=== PATIENT | female | born 1945 | race Two or more races ===

== ENCOUNTER → 2017-01-21 | Day surgery (SDC) | payer MEDICARE ==
[~2017-01-21] VITALS: Ht 168.9 cm; Wt 67.6 kg
[~2017-01-21] MED LIST: ASCO10003 PO; CALCTAB63 PO; CIPR500T3 PO; CIPROFLOXACIN 400 MG in APPROPRIATE DILUENT 1 EA IV ONE; CITA20TA4 PO; CONRAY-60 60% 50ML VIAL (Q9961) As Ordered ONE; DILT180C74 PO; GLUC1CAP10 PO; HYDR-3716 PO; KETOROLAC 60 MG/2 ML VIAL (J1885) As Ordered ONE; LEVO125T4 PO; LIDOCAINE 2% INJ 100 MG/5 ML SDV (FOR ANES.) As Ordered ONE; LR 1,000 ML IV ONE; LR 1,000 ML IV SCH; METOCLOPRAMIDE INJ 10MG/2ML VIAL (J2765) As Ordered ONE; METOCLOPRAMIDE INJ 10MG/2ML VIAL (J2765) IV PRN; MIDAZOLAM INJ 2 MG/2 ML VIAL (J2250) As Ordered ONE; MULT1TAB10 PO; OMEP20CA3 PO; ONDANSETRON 4MG/2ML VIAL (J2405) As Ordered ONE; ONDANSETRON 4MG/2ML VIAL (J2405) IV PRN; PROPOFOL 200 MG/20 ML VIAL As Ordered ONE; ROPI1TAB PO; SPIR25TA2 PO; STOO100C PO; TORS20TA2 PO; TURM500C3 PO; TYLE650T35 PO; VITATAB11 PO; dexameTHASONE 4 MG/ML 1ML VIAL (J1100) As Ordered ONE; fentaNYL 100 MCG/2 ML INJECTION (J3010) As Ordered ONE; fentaNYL 100 MCG/2 ML INJECTION (J3010) IV PRN
[2017-01-21 10:21] LABS: INR 0.97
--- NOTE | 2017-01-21 13:08 | REP ---
Retrograde pyelogram: Procedures performed by the urologist, Dr. Azevedo. Two intraoperative fluoroscopic views are performed during right ureteral stent placement. The final film demonstrates the proximal and distal pigtails are in satisfactory locations. Fluoroscopic exposure time is 26 seconds. Fluoroscopic images are performed with last image hold technology. These images require no additional radiation. Signed by Jordan Cheek MD 01/21/2017 01:00 P
[2017-01-21 14:25] VITALS: BP 134/76
--- NOTE | 2017-01-22 19:07 | RO ---
DATE OF PROCEDURE: 01/21/2017 PREPROCEDURE DIAGNOSIS: Right kidney stone. POSTPROCEDURE DIAGNOSIS: Right kidney stones. FINDINGS: Multiple right kidney stones of about 5-6 mm in diameter, in total three stones. PROCEDURE: Cystoscopy, plus right retrograde pyelogram, plus right ureteroscopy , plus right basket extraction of stones, plus right double J stent placement, 6-Tunisian Luckey Cook. SURGEON: Ignacio Brown MD BALLOON DESIGN PRINTER: None. ANESTHESIA: General. COMPLICATIONS: None. ESTIMATED BLOOD LOSS: N/A. HISTORY OF THE PRESENT ILLNESS: A 71-year-old female patient with right flank pain and a 1 cm kidney stone. The patient has consented for a cystoscopy, plus right retrograde pyelogram, right ureteroscopy, possible laser stone lithotripsy , possible basket extraction of stones, possible right double J stent placement. DESCRIPTION OF PROCEDURE: In a patient under general anesthesia in supine modified low lithotomy position, after prepping and draping the area of concern, which included the entire genitalia and abdomen, we started by introducing a 21-Tunisian cystoscope with a 30-degree lens under videoendoscopic guidance. The urethra and bladder neck were totally normal. The bladder had no tumors, no stones, no foreign objects. Both ureteral orifices were excreting clear urine. We then proceeded to actually do a retrograde pyelogram on the right side. There were no stones in the ureter. At that moment in time, we passed the guidewire up to the kidney, took the cystoscope out, passed a ureteral access sheath up to the proximal ureter, took out the obturator of the ureteral access sheath and then loaded a flexible ureteroscopy. We did a formal nephroscopy with a flexible ureteroscopy; upper pole, mid pole and lower pole . There were stones in the upper pole and the mid pole. We then proceeded to actually grab each stone, a total of three stones about 5-6 mm in diameter, was grabbed with a basket, a 1.9 [place]ian ZeroTip basket and pulled out of the body of the patient. Once the kidney was cleared of any type of stones, we actually did a retrograde ureteroscopy by removing the ureteral access sheath and the flexible ureteroscope at the same time. We then proceeded to place a cystoscope and following the guidewire, we placed a right double J stent, 6-Tunisian Luckey Cook. Once the stent was in good position, we took the guidewire out, and we could see the curl in the kidney and the curl in the bladder. We then emptied the bladder and took the cystoscope out. PLAN: The patient will go home today with antibiotic, pain medication, followup in 1 week for removal of right double J stent. Stones were sent for biochemical analysis. CRISSY
== END | disposition home or self-care (01) ==
LOC: M SDC 09:44
PROVIDERS: ATTEND Urology
DX: N20.0 Calculus of kidney (principal); I10 Essential (primary) hypertension; E03.9 Hypothyroidism, unspecified; K21.9 Gastro-esophageal reflux disease without esophagitis; R29.898 Other symptoms and signs involving the musculoskeletal system; M15.0 Primary generalized (osteo)arthritis; L63.9 Alopecia areata, unspecified; F41.9 Anxiety disorder, unspecified; F32.9 Major depressive disorder, single episode, unspecified; R07.9 Chest pain, unspecified; G25.81 Restless legs syndrome; K43.9 Ventral hernia without obstruction or gangrene; I35.0 Nonrheumatic aortic (valve) stenosis; Z88.0 Allergy status to penicillin; Z88.1 Allergy status to other antibiotic agents; Z88.2 Allergy status to sulfonamides; Z88.8 Allergy status to other drugs, medicaments and biological substances; Z91.048 Other nonmedicinal substance allergy status; Z91.09 Other allergy status, other than to drugs and biological substances; Z79.899 Other long term (current) drug therapy; Z98.84 Bariatric surgery status; Z90.710 Acquired absence of both cervix and uterus; Z98.51 Tubal ligation status; Z87.891 Personal history of nicotine dependence; Z87.19 Personal history of other diseases of the digestive system
CPT/HCPCS: 36415; 52332; 52352; 74420; 82360; 85610; 88300; C1769; C1894; C2617; J0744; J1100; J1885; J2250; J2405; J2765; J3010; Q9961

== ENCOUNTER → 2021-08-04 | Outpatient (REF) | payer MEDICARE ==
[~2021-08-04] MED LIST changes: +ACET650T61 PO; -CIPROFLOXACIN 400 MG in APPROPRIATE DILUENT 1 EA IV ONE; -CITA20TA4 PO; +CITA20TA6 PO; -CONRAY-60 60% 50ML VIAL (Q9961) As Ordered ONE; -DILT180C74 PO; +DILT1CAP3 PO; -KETOROLAC 60 MG/2 ML VIAL (J1885) As Ordered ONE; -LIDOCAINE 2% INJ 100 MG/5 ML SDV (FOR ANES.) As Ordered ONE; -LR 1,000 ML IV ONE; -LR 1,000 ML IV SCH; -METOCLOPRAMIDE INJ 10MG/2ML VIAL (J2765) As Ordered ONE; -METOCLOPRAMIDE INJ 10MG/2ML VIAL (J2765) IV PRN; -MIDAZOLAM INJ 2 MG/2 ML VIAL (J2250) As Ordered ONE; +MM S100C PO; +OMEP1CAP73 PO; -OMEP20CA3 PO; -ONDANSETRON 4MG/2ML VIAL (J2405) As Ordered ONE; -ONDANSETRON 4MG/2ML VIAL (J2405) IV PRN; -PROPOFOL 200 MG/20 ML VIAL As Ordered ONE; -ROPI1TAB PO; +ROPI1TAB3 PO; +SPIR-10 PO; -SPIR25TA2 PO; -STOO100C PO; -TYLE650T35 PO; -dexameTHASONE 4 MG/ML 1ML VIAL (J1100) As Ordered ONE; -fentaNYL 100 MCG/2 ML INJECTION (J3010) As Ordered ONE; -fentaNYL 100 MCG/2 ML INJECTION (J3010) IV PRN
[2021-08-06 07:02] LABS: TOTAL PROTEIN 7.4 GM/DL (6.4-8.2)
[2021-08-06 09:08] LABS: ALBUMIN % 56.7 % (55.8-66.1); ALPHA-1-GLOBULIN % 5.2 % (2.9-4.9); ALPHA-1-GLOBULINS 0.38 GM/DL (0.17-0.41); ALPHA-2-GLOBULINS 1.16 GM/DL (0.42-0.99); ALPHA-2-GLOBULINS % 15.7 % (7.1-11.8); BETA-1-GLOBULINS 0.45 GM/DL (0.28-0.60); BETA-1-GLOBULINS % 6.1 % (4.7-7.2); BETA-2-GLOBULINS 0.44 GM/DL (0.19-0.55); BETA-2-GLOBULINS % 5.9 % (3.2-6.5); GAMMA GLOBULIN % 10.4 % (11.1-18.8); GAMMA GLOBULINS 0.77 GM/DL (0.65-1.58)
== END ==
LOC: M LAB REF 16:43
PROVIDERS: ATTEND Internal Medicine Nephrology
DX: N18.9 Chronic kidney disease, unspecified (principal); D63.1 Anemia in chronic kidney disease

== ENCOUNTER → 2022-05-15 | Outpatient (CLI) | payer MEDICARE ==
[2022-05-15 16:19] LABS: ALBUMIN 3.9 GM/DL (3.2-5.2); BILIRUBIN,TOTAL 0.3 MG/DL (0.2-1.0); CALCIUM LEVEL 9.2 MG/DL (8.8-10.2); CREATININE FOR GFR 2.02 MG/DL (0.55-1.30); GLOMERULAR FILTRATION RATE 25.6 (>39); POTASSIUM SERUM 4.3 MEQ/L (3.5-5.1); TOTAL PROTEIN 7.2 GM/DL (6.4-8.2)
== END ==
LOC: M LAB 14:58
PROVIDERS: ATTEND Nurse Practitioner Family
DX: B35.1 Tinea unguium (principal)

== ENCOUNTER 2022-07-21 15:58 | Inpatient (IN) | payer MEDICARE ==
[~2022-07-21] VITALS: Ht 167.6 cm; Wt 100.0 kg
[2022-07-21 22:06] LABS: BASO % 0.6 % (0.0-1.0); EOS # 0.1 10^3/uL (0.0-0.5); EOS % 2.6 % (0.0-3.0); HEMATOCRIT 28.7 % (36.0-47.0); HEMOGLOBIN 8.7 g/dl (12.0-15.5); LYMPH # 1.1 10^3/uL (1.5-5.0); LYMPH % 21.2 % (24.0-44.0); MEAN CORPUSCULAR HGB CONC 30.3 g/dl (32.0-36.5); MEAN CORPUSCULAR VOLUME 112.1 fl (80.0-96.0); MONO # 0.5 10^3/uL (0.0-0.8); MONO % 10.9 % (2.0-8.0); NEUTROPHILS # 3.2 10^3/uL (1.5-8.5); NEUTROPHILS % 64.1 % (36.0-66.0); PLATELET COUNT, AUTOMATED 205 10^3/uL (150-450); RED BLOOD COUNT 2.56 10^6/uL (4.00-5.40)
[2022-07-21 22:17] LABS: INR 0.92; PROTHROMBIN TIME 12.6 SECONDS (12.5-14.5)
[2022-07-21 22:28] LABS: BLOOD UREA NITROGEN 60 MG/DL (9-23); CALCIUM LEVEL 8.8 MG/DL (8.3-10.6); CARBON DIOXIDE LEVEL 21 MMOL/L (20-31); CHLORIDE LEVEL 107 MMOL/L (98-107); CREATININE FOR GFR 1.86 MG/DL (0.55-1.30); GLOMERULAR FILTRATION RATE 28.2 (>39); GLUCOSE, FASTING 98 MG/DL (74-106); POTASSIUM SERUM 4.1 MMOL/L (3.5-5.1); RSV AMPLIFICATION NEGATIVE (NEGATIVE); SODIUM LEVEL 142 MMOL/L (136-145)
[2022-07-21] MEDS ORDERED: ACETAMINOPHEN TAB 650MG DOSE (2X325MG) PO PRN (23:25)
[2022-07-21] MEDS ORDERED: MORPHINE 4 MG/ML 1ML VIAL IV PRN (23:25)
[2022-07-21] MEDS ORDERED: ONDANSETRON 4MG 2ML VIAL IV PRN (23:25)
[2022-07-21] MEDS ORDERED: rOPINIRole 1MG TAB PO ONE (23:35)
[2022-07-21] MEDS ORDERED: GABAPENTIN 300 MG CAP PO ONE (23:35)
[2022-07-21 23:50] LABS: IRON (FE) 54 UG/DL (50-170); TOTAL IRON BINDING CAPACITY 284 UG/DL (250-425)
[2022-07-21 23:52] LABS: FERRITIN 234.1 NG/ML (7.3-270.7)
[2022-07-21 23:53] LABS: FOLATE > 24.00 NG/ML (>5.4)
[2022-07-21 23:54] LABS: VITAMIN B12 LEVEL > 2000 PG/ML (211-911)
[2022-07-22] MEDS ORDERED: GABA-282 PO (00:19)
[2022-07-22] MEDS ORDERED: OXYC1TAB23 PO (00:19)
[2022-07-22] MEDS ORDERED: CELE40TA PO (00:19)
[2022-07-22] MEDS ORDERED: ACET650T61 PO (00:19)
[2022-07-22] MEDS ORDERED: SYNT150T PO (00:19)
[2022-07-22] MEDS ORDERED: VITATAB73 PO (00:19)
[2022-07-22] MEDS ORDERED: VITA100065 PO (00:19)
[2022-07-22] MEDS ORDERED: ATOR1TAB19 PO (00:19)
[2022-07-22] MEDS ORDERED: MULT-40 PO (00:19)
[2022-07-22] MEDS ORDERED: ROPI2TAB3 PO (00:19)
[2022-07-22] MEDS ORDERED: RA T500C2 PO (00:19)
[2022-07-22] MEDS ORDERED: HOME MED LIST COMPLETE! XX SCH (00:20)
[2022-07-22] MEDS: LEVOTHYROXINE 150MCG TABLET (0.15MG) PO SCH (06:32)
[2022-07-22 06:35] LABS: HEMATOCRIT 25.9 % (36.0-47.0); HEMOGLOBIN 7.9 g/dl (12.0-15.5); MEAN CORPUSCULAR HEMOGLOBIN 33.9 pg (27.0-33.0); MEAN CORPUSCULAR HGB CONC 30.5 g/dl (32.0-36.5); MEAN CORPUSCULAR VOLUME 111.2 fl (80.0-96.0); PLATELET COUNT, AUTOMATED 195 10^3/uL (150-450); RED BLOOD COUNT 2.33 10^6/uL (4.00-5.40); WHITE BLOOD COUNT 4.4 10^3/uL (4.0-10.0)
[2022-07-22 06:56] LABS: MAGNESIUM LEVEL 2.2 MG/DL (1.8-2.4)
[2022-07-22 06:57] LABS: CALCIUM LEVEL 8.5 MG/DL (8.3-10.6); CHOLESTEROL RISK RATIO 3.92 (<5); CREATININE FOR GFR 1.65 MG/DL (0.55-1.30); GLOMERULAR FILTRATION RATE 32.4 (>39); HDL CHOLESTEROL 33.4 MG/DL (>40); POTASSIUM SERUM 4.2 MMOL/L (3.5-5.1)
[2022-07-22] MEDS: MORPHINE 2 MG/ML 1ML VIAL IV PRN (08:55)
[2022-07-22] MEDS: OMEPRAZOLE 20MG CAP PO SCH (09:00)
[2022-07-22] MEDS: GABAPENTIN 300 MG CAP PO SCH ×2 (09:00→16:00)
[2022-07-22] MEDS: ATORVASTATIN 20 MG TAB PO SCH (09:00)
[2022-07-22] MEDS: SPIRONOLACTONE 25 MG TAB PO SCH (09:00)
[2022-07-22] MEDS: TORSEMIDE 20 MG TAB PO SCH (09:00)
[2022-07-22] MEDS ORDERED: LORazepam 2 MG/ML VIAL IV ONE (10:20)
[2022-07-22 13:49] LABS: BASO % 0.4 % (0.0-1.0); EOS # 0.1 10^3/uL (0.0-0.5); EOS % 2.6 % (0.0-3.0); HEMATOCRIT 27.7 % (36.0-47.0); HEMOGLOBIN 8.2 g/dl (12.0-15.5); LYMPH # 0.8 10^3/uL (1.5-5.0); LYMPH % 14.9 % (24.0-44.0); MEAN CORPUSCULAR HEMOGLOBIN 33.2 pg (27.0-33.0); MEAN CORPUSCULAR HGB CONC 29.6 g/dl (32.0-36.5); MEAN CORPUSCULAR VOLUME 112.1 fl (80.0-96.0); MONO # 0.5 10^3/uL (0.0-0.8); NEUTROPHILS # 3.6 10^3/uL (1.5-8.5); NEUTROPHILS % 71.7 % (36.0-66.0); PLATELET COUNT, AUTOMATED 192 10^3/uL (150-450); RED BLOOD COUNT 2.47 10^6/uL (4.00-5.40)
[2022-07-22 15:20] VITALS: BP 143/75
[2022-07-22] MEDS: rOPINIRole 2MG TAB PO SCH (15:35)
[2022-07-22] MEDS ORDERED: VANCOMYCIN 1000MG/20ML VIAL As Ordered ONE (16:02)
[2022-07-22] MEDS ORDERED: VANCOMYCIN 1000MG/20ML VIAL ONE (16:02)
[2022-07-22] MEDS ORDERED: TRANEXAMIC ACID 100 MG/ML 10ML VIAL As Ordered ONE (16:02)
[2022-07-22] MEDS ORDERED: LIDOCAINE W/EPINEPHRINE 1% 20ML VIAL As Ordered ONE ×2 (16:02→16:59)
[2022-07-22] MEDS ORDERED: ceFAZolin 2 GM/D5W 50 ML IV BAG As Ordered ONE (16:02)
[2022-07-22] MEDS ORDERED: SUGAMMADEX SODIUM 500 MG/5 ML VIAL (BRIDION) As Ordered ONE ×2 (16:50→17:48)
[2022-07-22] MEDS ORDERED: LIDOCAINE 2% 100MG/5ML SDV (FOR ANES.) As Ordered ONE ×2 (16:50→17:24)
[2022-07-22] MEDS ORDERED: ROCURONIUM BROMIDE 50MG/5ML VIAL As Ordered ONE ×3 (16:50→19:08)
[2022-07-22] MEDS ORDERED: fentaNYL 100 MCG/2 ML INJECTION As Ordered ONE ×3 (16:50→20:25)
[2022-07-22] MEDS ORDERED: propofoL 200 MG/20 ML VIAL As Ordered ONE ×2 (16:50→17:24)
[2022-07-22] MEDS ORDERED: ONDANSETRON 4MG 2ML VIAL As Ordered ONE ×2 (16:50→17:44)
[2022-07-22] MEDS ORDERED: MIDAZOLAM INJ 2MG/2ML VIAL As Ordered ONE ×2 (16:51→17:24)
[2022-07-22] MEDS ORDERED: ETOMIDATE INJ 20MG/10ML VIAL As Ordered ONE (17:24)
[2022-07-22] MEDS ORDERED: ACETAMINOPHEN 1000MG 100ML IV BAG As Ordered ONE (17:49)
[2022-07-22] MEDS ORDERED: KETOROLAC 60MG 2ML VIAL As Ordered ONE (17:49)
[2022-07-22] MEDS ORDERED: ePHEDrine SULFATE 25 MG/5 ML(5MG/ML) SYRINGE As Ordered ONE (18:40)
[2022-07-22] MEDS ORDERED: ONDANSETRON 4MG 2ML VIAL IV PRN ×2 (20:35→21:20)
[2022-07-22] MEDS ORDERED: LR 1,000 ML IV SCH (20:35)
[2022-07-22] MEDS ORDERED: fentaNYL 100 MCG/2 ML INJECTION IV PRN (20:35)
[2022-07-22] MEDS ORDERED: oxyCODONE 5MG TAB PO PRN (20:35)
[2022-07-22] MEDS ORDERED: HYDROMORPHONE HCL 0.5 MG/ 0.5 ML SYRINGE IV PRN (20:35)
[2022-07-22 21:20] LABS: HEMATOCRIT 28.6 % (36.0-47.0); HEMOGLOBIN 8.4 g/dl (12.0-15.5); MEAN CORPUSCULAR HEMOGLOBIN 33.6 pg (27.0-33.0); MEAN CORPUSCULAR HGB CONC 29.4 g/dl (32.0-36.5); PLATELET COUNT, AUTOMATED 199 10^3/uL (150-450); WHITE BLOOD COUNT 10.7 10^3/uL (4.0-10.0)
[2022-07-22] MEDS ORDERED: MORPHINE 2 MG/ML 1ML VIAL IV PRN (21:20)
[2022-07-22 21:23] LABS: MEAN CORPUSCULAR VOLUME 114.4 fl (80.0-96.0)
[2022-07-22 22:06] VITALS: BP 137/73
[2022-07-22 22:36] VITALS: BP 110/68
[2022-07-22 23:06] VITALS: BP 113/66
[2022-07-23] VITALS (15 sets, daily range): BP systolic 83–113; BP diastolic 45–65
[2022-07-23] MEDS: ceFAZolin SOD 1 GM in D5W MINI-BAG PLUS 50 ML IV SCH ×3 (00:17→16:19)
[2022-07-23] MEDS: rOPINIRole 2MG TAB PO SCH ×3 (00:21→20:02)
[2022-07-23] MEDS: CitaloPRAM (CeleXA) 20 MG TAB PO SCH ×2 (00:22→20:04)
[2022-07-23] MEDS: GABAPENTIN 300 MG CAP PO SCH ×4 (00:22→20:02)
[2022-07-23] MEDS: oxyCODONE 5MG TAB PO PRN ×3 (05:46→20:04)
[2022-07-23] MEDS: LEVOTHYROXINE 150MCG TABLET (0.15MG) PO SCH (06:00)
[2022-07-23 06:19] LABS: HEMATOCRIT 24.6 % (36.0-47.0); HEMOGLOBIN 7.4 g/dl (12.0-15.5); MEAN CORPUSCULAR HEMOGLOBIN 34.3 pg (27.0-33.0); MEAN CORPUSCULAR HGB CONC 30.1 g/dl (32.0-36.5); MEAN CORPUSCULAR VOLUME 113.9 fl (80.0-96.0); PLATELET COUNT, AUTOMATED 178 10^3/uL (150-450); RED BLOOD COUNT 2.16 10^6/uL (4.00-5.40); WHITE BLOOD COUNT 6.5 10^3/uL (4.0-10.0)
[2022-07-23 06:46] LABS: CALCIUM LEVEL 8.4 MG/DL (8.3-10.6); CREATININE FOR GFR 1.68 MG/DL (0.55-1.30); GLOMERULAR FILTRATION RATE 31.7 (>39); POTASSIUM SERUM 5.6 MMOL/L (3.5-5.1)
[2022-07-23] MEDS ORDERED: ENOXAPARIN 40MG/0.4ML SYRINGE (J1650 PER 10MG) SC SCH (09:00)
[2022-07-23] MEDS: ACETAMINOPHEN TAB 650MG DOSE (2X325MG) PO PRN (09:55)
[2022-07-23] MEDS: TORSEMIDE 20 MG TAB PO SCH (09:55)
[2022-07-23] MEDS: ATORVASTATIN 20 MG TAB PO SCH (09:55)
[2022-07-23] MEDS: OMEPRAZOLE 20MG CAP PO SCH (09:56)
[2022-07-23] MEDS: SPIRONOLACTONE 25 MG TAB PO SCH (09:56)
[2022-07-23] MEDS ORDERED: PERCOCET 5MG/325MG TAB PO ONE (12:15)
[2022-07-23] MEDS ORDERED: LIDOCAINE 1% MDV 20ML VIAL As Ordered ONE (15:13)
[2022-07-23] MEDS: MORPHINE 4 MG/ML 1ML VIAL IV PRN (16:20)
[2022-07-23] MEDS ORDERED: SODIUM CHLORIDE 0.9% INJ 10 ML SYR IV SCH (16:50)
[2022-07-23] MEDS ORDERED: SODIUM CHLORIDE 0.9% INJ 10 ML SYR IV PRN (16:50)
[2022-07-23] MEDS: SODIUM CHLORIDE 0.9% INJ 10 ML SYR IV SCH (17:28)
[2022-07-24 00:04] VITALS: BP 112/61
[2022-07-24] MEDS: oxyCODONE 5MG TAB PO PRN ×3 (02:11→13:45)
[2022-07-24] MEDS: LEVOTHYROXINE 150MCG TABLET (0.15MG) PO SCH (05:35)
[2022-07-24] MEDS: SODIUM CHLORIDE 0.9% INJ 10 ML SYR IV SCH ×2 (05:36→16:48)
[2022-07-24 05:58] LABS: HEMOGLOBIN 8.9 g/dl (12.0-15.5); MEAN CORPUSCULAR HEMOGLOBIN 33.8 pg (27.0-33.0); MEAN CORPUSCULAR HGB CONC 31.8 g/dl (32.0-36.5); MEAN CORPUSCULAR VOLUME 106.5 fl (80.0-96.0); PLATELET COUNT, AUTOMATED 157 10^3/uL (150-450); RED BLOOD COUNT 2.63 10^6/uL (4.00-5.40); WHITE BLOOD COUNT 5.7 10^3/uL (4.0-10.0)
[2022-07-24 06:00] VITALS: BP 110/60
[2022-07-24 06:28] LABS: CALCIUM LEVEL 8.3 MG/DL (8.3-10.6); CREATININE FOR GFR 1.66 MG/DL (0.55-1.30); GLOMERULAR FILTRATION RATE 32.1 (>39); POTASSIUM SERUM 5.1 MMOL/L (3.5-5.1)
[2022-07-24] MEDS: rOPINIRole 2MG TAB PO SCH ×2 (09:04→20:43)
[2022-07-24] MEDS: GABAPENTIN 300 MG CAP PO SCH ×3 (09:04→20:43)
[2022-07-24] MEDS: OMEPRAZOLE 20MG CAP PO SCH (09:04)
[2022-07-24] MEDS: TORSEMIDE 20 MG TAB PO SCH (09:04)
[2022-07-24] MEDS: ATORVASTATIN 20 MG TAB PO SCH (09:04)
[2022-07-24] MEDS: SPIRONOLACTONE 25 MG TAB PO SCH (09:04)
[2022-07-24 10:00] VITALS: BP 115/53
[2022-07-24] MEDS ORDERED: MOM 30ML SUSPENSION UDC PO PRN (13:35)
[2022-07-24] MEDS: SENOKOT S TAB PO PRN (13:45)
[2022-07-24 14:00] VITALS: BP 110/48
[2022-07-24 20:32] VITALS: BP 124/56
[2022-07-24] MEDS: CitaloPRAM (CeleXA) 20 MG TAB PO SCH (20:43)
[2022-07-24] MEDS: MORPHINE 4 MG/ML 1ML VIAL IV PRN (20:44)
[2022-07-24] MEDS: SODIUM CHLORIDE 0.9% INJ 10 ML SYR IV PRN (20:45)
[2022-07-25] MEDS: oxyCODONE 5MG TAB PO PRN ×4 (00:44→17:27)
[2022-07-25] MEDS: MORPHINE 4 MG/ML 1ML VIAL IV PRN (03:41)
[2022-07-25] MEDS: SODIUM CHLORIDE 0.9% INJ 10 ML SYR IV PRN ×2 (03:43→14:22)
[2022-07-25] MEDS: LEVOTHYROXINE 150MCG TABLET (0.15MG) PO SCH (05:00)
[2022-07-25] MEDS: SODIUM CHLORIDE 0.9% INJ 10 ML SYR IV SCH ×2 (05:00→18:05)
[2022-07-25 06:13] VITALS: BP 98/61
[2022-07-25 06:20] LABS: HEMATOCRIT 31.3 % (36.0-47.0); HEMOGLOBIN 9.6 g/dl (12.0-15.5); MEAN CORPUSCULAR HEMOGLOBIN 32.9 pg (27.0-33.0); MEAN CORPUSCULAR HGB CONC 30.7 g/dl (32.0-36.5); MEAN CORPUSCULAR VOLUME 107.2 fl (80.0-96.0); PLATELET COUNT, AUTOMATED 163 10^3/uL (150-450); RED BLOOD COUNT 2.92 10^6/uL (4.00-5.40); WHITE BLOOD COUNT 9.6 10^3/uL (4.0-10.0)
[2022-07-25] MEDS: SENOKOT S TAB PO PRN (06:20)
[2022-07-25 06:40] VITALS: BP 102/58
[2022-07-25 06:40] LABS: CALCIUM LEVEL 8.8 MG/DL (8.3-10.6); CREATININE FOR GFR 1.44 MG/DL (0.55-1.30); GLOMERULAR FILTRATION RATE 37.9 (>39)
[2022-07-25 08:00] VITALS: BP 101/62
[2022-07-25] MEDS: rOPINIRole 2MG TAB PO SCH ×2 (08:22→20:46)
[2022-07-25] MEDS: GABAPENTIN 300 MG CAP PO SCH ×3 (08:22→20:46)
[2022-07-25] MEDS: ATORVASTATIN 20 MG TAB PO SCH (08:22)
[2022-07-25] MEDS: SPIRONOLACTONE 25 MG TAB PO SCH (08:22)
[2022-07-25] MEDS: TORSEMIDE 20 MG TAB PO SCH (08:22)
[2022-07-25] MEDS: OMEPRAZOLE 20MG CAP PO SCH (09:01)
[2022-07-25 14:00] VITALS: BP 89/55
[2022-07-25] MEDS: MORPHINE 2 MG/ML 1ML VIAL IV PRN ×2 (14:20→20:47)
[2022-07-25] MEDS: ACETAMINOPHEN TAB 650MG DOSE (2X325MG) PO PRN (16:16)
[2022-07-25 20:30] VITALS: BP 110/60
[2022-07-25] MEDS: CitaloPRAM (CeleXA) 20 MG TAB PO SCH (20:46)
[2022-07-26] MEDS: oxyCODONE 5MG TAB PO PRN ×4 (01:49→17:20)
[2022-07-26 05:10] VITALS: BP 120/58
[2022-07-26] MEDS: LEVOTHYROXINE 150MCG TABLET (0.15MG) PO SCH (05:21)
[2022-07-26] MEDS: SODIUM CHLORIDE 0.9% INJ 10 ML SYR IV SCH ×2 (05:21→18:10)
[2022-07-26] MEDS: MORPHINE 2 MG/ML 1ML VIAL IV PRN ×3 (05:22→19:50)
[2022-07-26 05:52] LABS: HEMATOCRIT 30.8 % (36.0-47.0); HEMOGLOBIN 9.5 g/dl (12.0-15.5); MEAN CORPUSCULAR HEMOGLOBIN 33.3 pg (27.0-33.0); MEAN CORPUSCULAR HGB CONC 30.8 g/dl (32.0-36.5); MEAN CORPUSCULAR VOLUME 108.1 fl (80.0-96.0); PLATELET COUNT, AUTOMATED 162 10^3/uL (150-450); RED BLOOD COUNT 2.85 10^6/uL (4.00-5.40); WHITE BLOOD COUNT 6.5 10^3/uL (4.0-10.0)
[2022-07-26 06:26] LABS: CALCIUM LEVEL 8.7 MG/DL (8.3-10.6); CREATININE FOR GFR 1.48 MG/DL (0.55-1.30); GLOMERULAR FILTRATION RATE 36.7 (>39); POTASSIUM SERUM 4.7 MMOL/L (3.5-5.1)
[2022-07-26] MEDS: ATORVASTATIN 20 MG TAB PO SCH (08:58)
[2022-07-26] MEDS: rOPINIRole 2MG TAB PO SCH ×2 (08:58→19:38)
[2022-07-26] MEDS: SPIRONOLACTONE 25 MG TAB PO SCH (09:00)
[2022-07-26] MEDS: GABAPENTIN 300 MG CAP PO SCH ×3 (09:07→19:38)
[2022-07-26] MEDS: OMEPRAZOLE 20MG CAP PO SCH (09:07)
[2022-07-26] MEDS: TORSEMIDE 20 MG TAB PO SCH (09:49)
[2022-07-26] MEDS: CitaloPRAM (CeleXA) 20 MG TAB PO SCH (19:38)
[2022-07-26] MEDS: SODIUM CHLORIDE 0.9% INJ 10 ML SYR IV PRN (19:52)
[2022-07-26 22:00] VITALS: BP 104/54
[2022-07-27] MEDS: oxyCODONE 5MG TAB PO PRN ×3 (00:06→16:42)
[2022-07-27] MEDS: LEVOTHYROXINE 150MCG TABLET (0.15MG) PO SCH (05:03)
[2022-07-27] MEDS: SODIUM CHLORIDE 0.9% INJ 10 ML SYR IV SCH ×2 (05:04→16:43)
[2022-07-27 06:00] VITALS: BP 104/55
[2022-07-27 06:01] LABS: HEMATOCRIT 30.6 % (36.0-47.0); HEMOGLOBIN 9.5 g/dl (12.0-15.5); MEAN CORPUSCULAR HEMOGLOBIN 33.5 pg (27.0-33.0); MEAN CORPUSCULAR VOLUME 107.7 fl (80.0-96.0); PLATELET COUNT, AUTOMATED 171 10^3/uL (150-450); RED BLOOD COUNT 2.84 10^6/uL (4.00-5.40); WHITE BLOOD COUNT 6.2 10^3/uL (4.0-10.0)
[2022-07-27 06:17] LABS: CALCIUM LEVEL 8.4 MG/DL (8.3-10.6); CREATININE FOR GFR 1.55 MG/DL (0.55-1.30); GLOMERULAR FILTRATION RATE 34.8 (>39); POTASSIUM SERUM 4.8 MMOL/L (3.5-5.1)
[2022-07-27 09:00] VITALS: BP 105/56
[2022-07-27] MEDS: TORSEMIDE 20 MG TAB PO SCH (09:23)
[2022-07-27] MEDS: rOPINIRole 2MG TAB PO SCH ×2 (09:23→20:08)
[2022-07-27] MEDS: ATORVASTATIN 20 MG TAB PO SCH (09:25)
[2022-07-27] MEDS: MORPHINE 2 MG/ML 1ML VIAL IV PRN (09:25)
[2022-07-27] MEDS: OMEPRAZOLE 20MG CAP PO SCH (09:26)
[2022-07-27] MEDS: SPIRONOLACTONE 25 MG TAB PO SCH (09:26)
[2022-07-27] MEDS: GABAPENTIN 300 MG CAP PO SCH ×3 (09:26→20:08)
[2022-07-27] MEDS: SODIUM CHLORIDE 0.9% INJ 10 ML SYR IV PRN (09:27)
[2022-07-27 14:00] VITALS: BP 108/56
[2022-07-27 14:29] LABS: APPEARANCE, URINE MANUAL CLEAR (CLEAR); COLOR, URINE MANUAL LT YELLOW (YELLOW)
[2022-07-27 14:30] LABS: SPECIFIC GRAVITY,URINE MANUAL 1.015 (1.002-1.035)
[2022-07-27 14:31] LABS: BILIRUBIN, URINE MANUAL NEGATIVE (NEGATIVE); BLOOD URINE MANUAL NEGATIVE (NEGATIVE); GLUCOSE, URINE (UA) MANUAL NEGATIVE (NEGATIVE); KETONE, URINE MANUAL NEGATIVE (NEGATIVE); LEUKOCYTE ESTERASE, URINE MAN NEGATIVE (NEGATIVE); NITRITE, URINE MANUAL NEGATIVE (NEGATIVE); PROTEIN, URINE MANUAL NEGATIVE (NEGATIVE); UROBILINOGEN, URINE MANUAL NORMAL (NORMAL)
[2022-07-27 19:45] VITALS: BP 108/56
[2022-07-27] MEDS: CitaloPRAM (CeleXA) 20 MG TAB PO SCH (20:08)
[2022-07-27] MEDS: MORPHINE 4 MG/ML 1ML VIAL IV PRN (20:08)
[2022-07-28] MEDS: MORPHINE 4 MG/ML 1ML VIAL IV PRN (01:53)
[2022-07-28] MEDS: LEVOTHYROXINE 150MCG TABLET (0.15MG) PO SCH (05:23)
[2022-07-28] MEDS: oxyCODONE 5MG TAB PO PRN ×2 (05:26→09:27)
[2022-07-28] MEDS: SODIUM CHLORIDE 0.9% INJ 10 ML SYR IV SCH (05:27)
[2022-07-28 05:53] VITALS: BP 110/58
[2022-07-28 06:17] LABS: CALCIUM LEVEL 8.3 MG/DL (8.3-10.6); CREATININE FOR GFR 1.46 MG/DL (0.55-1.30); GLOMERULAR FILTRATION RATE 37.3 (>39); POTASSIUM SERUM 4.9 MMOL/L (3.5-5.1)
[2022-07-28 07:40] LABS: BASO % 0.6 % (0.0-1.0); EOS # 0.2 10^3/uL (0.0-0.5); HEMATOCRIT 31.4 % (36.0-47.0); HEMOGLOBIN 9.6 g/dl (12.0-15.5); LYMPH # 1.1 10^3/uL (1.5-5.0); LYMPH % 23.1 % (24.0-44.0); MEAN CORPUSCULAR HEMOGLOBIN 33.9 pg (27.0-33.0); MEAN CORPUSCULAR HGB CONC 30.6 g/dl (32.0-36.5); MONO # 0.5 10^3/uL (0.0-0.8); MONO % 10.7 % (2.0-8.0); PLATELET COUNT, AUTOMATED 168 10^3/uL (150-450); RED BLOOD COUNT 2.83 10^6/uL (4.00-5.40); WHITE BLOOD COUNT 4.9 10^3/uL (4.0-10.0)
[2022-07-28 07:50] LABS: MAGNESIUM LEVEL 2.2 MG/DL (1.8-2.4)
[2022-07-28 09:26] VITALS: BP 99/59
[2022-07-28] MEDS: OMEPRAZOLE 20MG CAP PO SCH (09:27)
[2022-07-28] MEDS: GABAPENTIN 300 MG CAP PO SCH (09:27)
[2022-07-28] MEDS: ATORVASTATIN 20 MG TAB PO SCH (09:27)
[2022-07-28] MEDS: rOPINIRole 2MG TAB PO SCH (09:27)
[2022-07-28 14:00] VITALS: BP 97/59
[2022-07-28] MEDS ORDERED: ASPI81CH33 PO (14:00)
== END 2022-07-28 16:04 | disposition home health service (06) | DRG 493 ==
LOC: M ED 21:58 → M ED INP 23:22 → M MSPAV 07-22 15:24
PROVIDERS: ADMIT Family Medicine; ATTEND Internal Medicine
PROC: BP1 Imaging, Non-Axial Upper Bones, Fluoroscopy (ICD-10-PCS; 2022-07-22)
PROC: 0PSF04Z Reposition Right Humeral Shaft with Internal Fixation Device, Open Approach (ICD-10-PCS; principal; 2022-07-22 07:00)
PROC: 30233N1 Transfusion of Nonautologous Red Blood Cells into Peripheral Vein, Percutaneous Approach (ICD-10-PCS; 2022-07-23)
PROC: 05HA33Z Insertion of Infusion Device into Left Brachial Vein, Percutaneous Approach (ICD-10-PCS; 2022-07-23)
PROC: B246ZZZ Ultrasonography of Right and Left Heart (ICD-10-PCS; 2022-07-24)
DX: S42.354A Nondisplaced comminuted fracture of shaft of humerus, right arm, initial encounter for closed fracture (principal); D62 Acute posthemorrhagic anemia; J95.89 Other postprocedural complications and disorders of respiratory system, not elsewhere classified; I10 Essential (primary) hypertension; K21.9 Gastro-esophageal reflux disease without esophagitis; S92.504A Nondisplaced unspecified fracture of right lesser toe(s), initial encounter for closed fracture; Z98.84 Bariatric surgery status; G62.9 Polyneuropathy, unspecified; Z90.79 Acquired absence of other genital organ(s); G25.81 Restless legs syndrome; F32.A Depression, unspecified; F41.9 Anxiety disorder, unspecified; E03.9 Hypothyroidism, unspecified; Z79.890 Hormone replacement therapy; Z79.899 Other long term (current) drug therapy; Z88.0 Allergy status to penicillin; Z88.2 Allergy status to sulfonamides; Z88.3 Allergy status to other anti-infective agents; Z88.8 Allergy status to other drugs, medicaments and biological substances; Z91.048 Other nonmedicinal substance allergy status; W01.0XXA Fall on same level from slipping, tripping and stumbling without subsequent striking against object, initial encounter; Y92.009 Unspecified place in unspecified non-institutional (private) residence as the place of occurrence of the external cause; R09.02 Hypoxemia; Z86.73 Personal history of transient ischemic attack (TIA), and cerebral infarction without residual deficits

== ENCOUNTER → 2022-08-06 | Outpatient (CLI) | payer MEDICARE ==
[~2022-08-06] MED LIST changes: +ASPI81CH33 PO; +ATOR1TAB19 PO; +CELE40TA PO; +GABA-282 PO; +MULT-40 PO; +OXYC1TAB23 PO; +RA T500C2 PO; +ROPI2TAB3 PO; +SYNT150T PO; +VITA100065 PO; +VITATAB73 PO
== END ==
LOC: M SOG 07:55
PROVIDERS: ATTEND Physician Assistant
DX: S42.201D Unspecified fracture of upper end of right humerus, subsequent encounter for fracture with routine healing (principal); Z98.890 Other specified postprocedural states

== ENCOUNTER → 2022-09-03 | Outpatient (CLI) | payer MEDICARE | LOC: M SOG 08:21 | PROVIDERS: ATTEND Physician Assistant | DX: S42.231D 3-part fracture of surgical neck of right humerus, subsequent encounter for fracture with routine healing (principal) ==

== ENCOUNTER → 2022-10-05 | Outpatient (CLI) | payer MEDICARE | LOC: M SOG 08:25 | PROVIDERS: ATTEND Physician Assistant | DX: S42.231D 3-part fracture of surgical neck of right humerus, subsequent encounter for fracture with routine healing (principal) ==